=== PATIENT | female | born 1980 | race Caucasian/White ===

== ENCOUNTER 2021-10-24 01:16 | Observation (INO) ==
[2021-10-24] MEDS ORDERED: *HR* HYDROmorphone (PF) 1 MG/ML SYRINGE IVP ONE ×2 (01:56→03:59)
[2021-10-24] MEDS ORDERED: Ondansetron 4 MG/2 ML VIAL IVP ONE (01:56)
[2021-10-24] MEDS ORDERED: Lidocaine 1% 20 ML MDV INFILT ONE (02:31)
[2021-10-24] MEDS ORDERED: *HR* Propofol 200 MG/20 ML VIAL IVP ONE ×2 (02:39→07:30)
[2021-10-24] MEDS ORDERED: 0.9 % Sodium Chloride 1,000 ML ONE (03:10)
[2021-10-24 05:15] LABS: Basophils % 0.4 %; Eosinophils % 0.1 %; Hemoglobin 12.2 g/dL (11.5-15.4)
[2021-10-24 05:17] LABS: Immature Granulocytes % 0.1 % (0-4); Immature Platelets 15.9 % (1.1-6.1); Lymphocytes # 1.1 K/mcL (0.6-4.6); Lymphocytes % 15.3 %; Mean Corpuscular Hemoglobin 30.8 pg (28.0-33.3); Mean Corpuscular Volume 93.4 fL (83.0-100.0); Mean Platelet Volume 12.1 fL (9.4-12.4); Monocytes # 0.2 K/mcL (0.0-1.3); Monocytes % 3.3 %; Neutrophils # 5.8 K/mcL (1.6-8.9); Platelet Count 163 K/mcL (140-400); Red Blood Count 3.96 M/mcL (3.82-4.97); Segmented Neutrophils % 80.8 %; White Blood Count 7.2 K/mcL (4.3-11.1)
[2021-10-24 05:19] LABS: BUN/Creatinine Ratio 14 (6-26); Blood Urea Nitrogen 10 mg/dL (6-20); Calcium 8.4 mg/dL (8.6-10.3); Carbon Dioxide 26 mEq/L (23-29); Chloride 108 mEq/L (98-107); Glucose 104 mg/dL (70-105); Osmolality,Calculated 291 (280-300); Potassium 3.9 mEq/L (3.5-5.1); Sodium 141 mEq/L (136-145); eGFR For African Americans > 60 (> 60); eGFR For Non-African Americans > 60 (> 60)
[2021-10-24] MEDS ORDERED: Calcium Gluconate 1gm/50mL 1 GM/50 ML BAG IVPB ONE (05:25)
[2021-10-24] MEDS ORDERED: *HR* HYDROmorphone 2 MG TABLET PO PRN ×2 (05:26→11:07)
[2021-10-24] MEDS ORDERED: tiZANidine 4 MG TABLET PO PRN ×2 (05:26→11:07)
[2021-10-24] MEDS ORDERED: Naloxone 0.4 MG/ML INJ IVP PRN ×3 (05:27→13:27)
[2021-10-24] MEDS ORDERED: Ondansetron 4 MG/2 ML VIAL IVP PRN ×4 (05:27→11:07)
[2021-10-24] MEDS ORDERED: 0.9 % Sodium Chloride 1,000 ML IVC SCH ×2 (05:30→11:07)
[2021-10-24 05:38] LABS: Influenza A PCR Negative (Negative); Influenza B PCR Negative (Negative); Resp. Syncytial Virus PCR Negative (Negative)
[2021-10-24 05:41] LABS: SARS-CoV-2 by PCR (In House) Negative (Negative)
[2021-10-24 05:43] LABS: INR 1.1; Prothrombin Time 12.2 Seconds (9.4-12.1)
[2021-10-24 05:45] LABS: Activated Partial Thrombo Time 25.1 Seconds (26.0-36.0)
[2021-10-24] MEDS ORDERED: Acetaminophen 325 MG TABLET PO PRN ×2 (06:00→11:07)
[2021-10-24] MEDS ORDERED: *HR* HYDROmorphone PF 0.5 MG/0.5 ML SYRINGE IVP PRN ×2 (07:15→11:07)
[2021-10-24] MEDS ORDERED: *HR* FentaNYL (PF) 100 MCG/2 ML VIAL IVP PRN ×2 (07:15→11:07)
[2021-10-24] MEDS ORDERED: Lidocaine -MPF 2% 5 ML VIAL ONE (07:30)
[2021-10-24] MEDS ORDERED: *HR* Midazolam HCl 2 MG/2 ML VIAL ONE (07:30)
[2021-10-24] MEDS ORDERED: Ondansetron 4 MG/2 ML VIAL ONE (07:30)
[2021-10-24] MEDS ORDERED: *HR* FentaNYL (PF) 100 MCG/2 ML VIAL ONE (07:30)
[2021-10-24] MEDS ORDERED: Ropivacaine/PF 0.5% 30 ML VIAL ONE (07:34)
[2021-10-24] MEDS ORDERED: ROPIVACAINE/PF/NS 0.25% 1 EACH SYRINGE INTRAART ONE (07:34)
[2021-10-24] MEDS ORDERED: Clindamycin 900 MG/50 ML 900 MG/50 ML IV.SOLN IVPB ONE ×2 (07:51→11:07)
[2021-10-24] MEDS ORDERED: Ringers Solution, Lactated 1,000 ML IVC SCH ×2 (08:00→11:07)
[2021-10-24 14:31] VITALS: BP 114/66; PULSE 73; TEMP 97.7; O2SAT 95
[2021-10-25] MEDS ORDERED: *HR* Rivaroxaban 10 MG TABLET PO SCH (06:00)
[2021-10-25] MEDS ORDERED: Cholecalciferol (D-3) 1,000 UNIT (25MCG) TABLET PO SCH (09:00)
== END 2021-10-24 16:05 | disposition home or self-care (01) ==
LOC: EMEROOARM 01:16 → 4WAOSI 01:16 → SUATTDRO 06:26
PROVIDERS: ADMIT Internal Medicine; ATTEND Pharmacist